=== PATIENT | male | born 1965 | race American Indian/Alaskan Native ===

== ENCOUNTER 2018-06-20 19:27 | Emergency (ER) | payer MEDICAID, OTHER ==
[2018-06-20 19:47] VITALS: BP 129/81; PULSE 77; RESP 20; TEMP 98.7; O2SAT 98
[2018-06-20 20:11] LABS: SQUAMOUS EPITHIAL < 1 /hpf (0-5); URINE BILIRUBIN NEGATIVE (NEGATIVE); URINE BLOOD 1+ (NEGATIVE); URINE CLARITY Clear (Clear); URINE COLOR Yellow (YELLOW); URINE GLUCOSE (UA) NORMAL (Normal); URINE LEUKOCYTE ESTERASE NEG Leu/uL (Negative); URINE PROTEIN NEGATIVE (NEGATIVE); URINE UROBILINOGEN NORMAL mg/dL (0.2-1.0)
[2018-06-20] MEDS ORDERED: cefTRIAXone (Rocephin) 250 mg Inj IM STA (20:34)
--- NOTE | 2018-06-20 20:37 | C.PDOC ---
History Of Present Illness 52 yo male come in for evaluation of burning on urination, intermittent yellow penile discharge gradually developed for past week after had unprotected sex. Otherwise, pt denies fever, chills, sore throat, abd. pain, N/V/D, back pain, denies hematuria, denies penile lesion, testicular pain or swelling. Ambulate to ED for evaluation, not in nay apparent distress. Time Seen by Provider: 06/20/18 19:46 Chief Complaint (Nursing): Male Genitourinary History Per: Patient Onset/Duration Of Symptoms: Gradual Past Medical History Reviewed: Historical Data, Nursing Documentation, Vital Signs Vital Signs: Last Vital Signs Temp 98.7 F 06/20/18 19:44 Pulse 77 06/20/18 19:44 Resp 20 06/20/18 19:44 BP 129/81 06/20/18 19:44 Pulse Ox 98 06/20/18 19:44 - Medical History PMH: Asthma Denies: Chronic Kidney Disease Family History: States: Unknown Family Hx - Social History Hx Alcohol Use: Yes Hx Substance Use: No - Immunization History Hx Tetanus Toxoid Vaccination: No Hx Influenza Vaccination: No Hx Pneumococcal Vaccination: No Review Of Systems Except As Marked, All Systems Reviewed And Found Negative. Constitutional: Negative for: Fever, Chills ENT: Negative for: Throat Pain Cardiovascular: Negative for: Chest Pain, Palpitations Respiratory: Negative for: Cough, Shortness of Breath, Wheezing Gastrointestinal: Negative for: Nausea, Vomiting, Abdominal Pain, Diarrhea Genitourinary: Positive for: Dysuria, Penile Discharge. Negative for: Hematuria , Scrotal Pain, Rash, Penile Pain Musculoskeletal: Negative for: Back Pain Skin: Negative for: Rash Neurological: Negative for: Headache Physical Exam - Physical Exam Appears: Well, Non-toxic, No Acute Distress Skin: Normal Color, Warm, Dry, No Rash Head: Normacephalic Eye(s): bilateral: PERRL Nose: No Flaring, No Discharge Oral Mucosa: Moist Throat: No Erythema, No Drooling Neck: Supple Cardiovascular: Rhythm Regular, No Murmur, No JVD Respiratory: No Decreased Breath Sounds, No Accessory Muscle Use, No Stridor, No Wheezing Gastrointestinal/Abdominal: Soft, No Tenderness, No Distention, No Guarding Back: No CVA Tenderness Male Genital: Other (refused) Extremity: Normal ROM, No Pedal Edema ED Course And Treatment O2 Sat by Pulse Oximetry: 98 Pulse Ox Interpretation: Normal Progress Note: On re-eval, pt is afebrile, hemodynamicaly stable. NOn-toxic. Neck: SUpple, (-) meningeal sign. ENT: no acute findings. ABd: benign, (-) guarding, (-) rebound. back: (-) CVA tenderness. UA results review and appears normal. Ptrequest tx for STD. Pt advised on course of ds, advised encourage partenr (s) to be checked and tx. Advised on sexual protection. ref. to F/U with PMD, Urology in 2-3 days for re-eval. return to ED if any worsening or new changes. Disposition Counseled Patient/Family Regarding: Studies Performed, Diagnosis, Need For Followup, Rx Given - Disposition Referrals: [facility] [Outside] Raulito Uriostegui Jr., MD [Staff Provider] - Disposition: HOME/ ROUTINE Disposition Time: 20:42 Condition: STABLE Additional Instructions: Follow up with PMD, urology for re-evaluation in 2-3 days Return to ED if any worsening or new changes. Instructions: Sexually-Transmitted Diseases, Urethritis (DC) - Clinical Impression Clinical Impression: STD (sexually transmitted disease), Urethritis
== END 2018-06-20 21:13 | disposition home or self-care (01) ==
LOC: C.ER 19:27
DX: A64 Unspecified sexually transmitted disease (principal); N34.2 Other urethritis
CPT/HCPCS: 81001; 87086; 87491; 87591; 96372; 99283; J0696